=== PATIENT | male | born 2000 | race Caucasian/White ===

== ENCOUNTER 2020-12-12 20:09 | Emergency (ER) | payer MEDICAID, SELFPAY ==
[2020-12-12 20:25] VITALS: PULSE 100; RESP 17; TEMP 37.5; O2SAT 96; BMI 37.5
[2020-12-12 23:04] VITALS: RESP 16; TEMP 37.3
[2020-12-12 23:17] LABS: Influenza A PCR NEGATIVE (Negative); Influenza B PCR NEGATIVE (Negative); Resp Syncy Virus RNA Qual PCR NEGATIVE (Negative)
[2020-12-12] MEDS: Acetaminophen 325 MG TABLET 650 MG PO (23:20)
--- NOTE | 2020-12-12 23:25 | ED.FEVER ---
HPI - Fever General Chief Complaint: Fever Stated Complaint: COVID SYMPTOMS Time Seen by Provider: 12/12/20 23:24 Source: patient Mode of arrival: ambulatory Limitations: no limitations History of Present Illness HPI Narrative: Patient complaining of body aches fever congestion started yesterday no known COVID contacts occasional dry cough no shortness of breath saturating 96% at room air Related Data Previous Rx's Medication Instructions Recorded ibuprofen 600 mg PO Q6H PRN #20 tab 12/14/20 [id number]-[id number] 1 appl TOPICAL QID 5 Days #15 g 12/14/20 [Cortisporin] amoxicillin-pot clavulanate 1 tab PO BID #14 tab 12/18/20 [Augmentin] ibuprofen 800 mg PO Q8H PRN #20 tab 12/18/20 Allergies Allergy/AdvReac Type Severity Reaction Status Date / Time No Known Allergies Allergy Verified 12/18/20 20:40 [No Known Allergies*] Review of Systems Review of Systems: Yes all other systems are reviewed and are negative PMFSH Past Medical History Medical History Asthma Social History Social History Advance Directives: No Advance Directives Information Provided: No Physical Exam Vital Signs: Vital Signs: Last Vital Signs Temp 99.2 F 12/12/20 23:04 Pulse 100 12/12/20 20:25 Resp 16 12/12/20 23:04 Pulse Ox 96 12/12/20 20:25 Body Mass Index 37.5 Const: General: comfortable and no acute distress HENMT: Head: Yes normal to inspection General nose exam: Normal external nose present Eyes: General: appearance normal, both eyes and all related structures Neck: Neck: Yes normal visual inspection Resp: Effort & Inspection: normal respiratory effort Auscultation: clear to auscultation bilaterally Cardio: Palpation: normal PMI Rate: regular rate Rhythm: regular rhythm GI: Inspection: Yes normal to inspection Palpation (GI): Soft to palpation and nontender Auscultation: normal bowel sounds MDM - Fever MDM Narrative Medical decision making narrative: Patient's symptoms with COVID 19 infection saturating 96% will discharge patient home for supportive treatment Lab Data Attestation: I reviewed the patient's lab results. Labs: Lab Results 12/12/20 Range/Units 22:17 Coronavirus (PCR) POSITIVE A (Negative) Influenza Type A (PCR) NEGATIVE (Negative) Influenza Type B (PCR) NEGATIVE (Negative) RSV RNA Qual (PCR) NEGATIVE (Negative) Discharge Plan Discharge Clinical Impression: COVID-19 Patient Disposition: Home, Self-Care Instructions: COVID-19 (Coronavirus Disease 2019) (ED) Additional Instructions: Keep social distancing Report to the ER/PCP if increased shortness of breath Prescriptions: No Action amoxicillin-pot clavulanate [Augmentin] 875-125 mg tablet 1 tab PO BID Qty: 14 RF: 0 ibuprofen 800 mg tablet 800 mg PO Q8H PRN (Reason: pain) Qty: 20 RF: 0 Cortisporin 1 % ointment 1 appl topical QID 5 Days Qty: 15 RF: 0 ibuprofen 600 mg tablet 600 mg PO Q6H PRN (Reason: pain) Qty: 20 RF: 0 Stand Alone Forms: Work/School Release Interventions: ED Discharge Assessment Last Done: 12/13/20 00:04 Discharge Date/Time: 12/13/20 00:04
[2020-12-12 23:26] LABS: SARS COV2 PCR INHOUSE POSITIVE (Negative)
== END 2020-12-13 00:04 | disposition home or self-care (01) ==
PROVIDERS: Emergency Provider Internal Medicine; PCP Internal Medicine Geriatric Medicine
DX: R05 Cough (principal); Z20.822 Contact with and (suspected) exposure to COVID-19
CPT/HCPCS: 0241U; 36415; 99284

== ENCOUNTER 2020-12-14 11:16 | Emergency (ER) | payer MEDICAID, SELFPAY ==
--- NOTE | ~2020-12-14 | XR_ITS ---
EXAMINATION: XR CHEST CLINICAL INFORMATION: Cough, COVID+ COMPARISON: Chest radiographs 07/17/2019 TECHNIQUE: Portable upright AP view of the chest was obtained. FINDINGS: There is subtle groundglass opacities suggested right base. There is no lobar or segmental airspace consolidation or effusion. The heart is normal in size. The vascularity is normal. The hilar and mediastinal contours and bony structures are similar to prior study. XR/XR chest 1V IMPRESSION: 1. Subtle groundglass opacities suggested right base. 2. Lungs otherwise clear. No lobar or segmental airspace consolidation or effusion.
[2020-12-14 11:24] VITALS: BP 135/85; PULSE 90; RESP 18; TEMP 36.1; O2SAT 97; BMI 34.9
--- NOTE | 2020-12-18 14:39 | ED.GENADULT ---
HPI - General Adult General Chief complaint: Upper Respiratory Symptoms <RISA Cool Last Filed: 12/18/20 14:43> Stated complaint: covid + <RISA Cool Last Filed: 12/18/20 14:43> Time Seen by Provider: 12/14/20 12:12 <RISA Cool Last Filed: 12/18/20 14:43> History of Present Illness HPI narrative: Patient who tested positive for COVID a couple of days ago complains of cough and mild shortness of breath as well as left ear pain, no fever no chills no headache no dizziness <RISA Cool Last Filed: 12/18/20 14:43> Related Data Home medications: Previous Rx's Medication Instructions Recorded ibuprofen 600 mg PO Q6H PRN #20 tab 12/14/20 [id number]-[id number]-[id number]-HC 1 appl TOPICAL QID 5 Days #15 g 12/14/20 [Cortisporin] amoxicillin-pot clavulanate 1 tab PO BID #14 tab 12/18/20 [Augmentin] ibuprofen 800 mg PO Q8H PRN #20 tab 12/18/20 <RISA Cool Last Filed: 12/18/20 14:43> Allergies/adverse reactions: Allergies Allergy/AdvReac Type Severity Reaction Status Date / Time No Known Allergies Allergy Verified 12/18/20 20:40 [No Known Allergies*] <RISA Cool Last Filed: 12/18/20 14:43> Review of Systems Review of Systems: Positive for cough shortness of breath and left ear pain Negatives are no fever no chills no confusion no headache no dizziness no weakness no neck pain no stiff neck no chest pain no palpitations no abdominal pain no nausea or vomiting no rash no numbness or weakness <RISA Cool Last Filed: 12/18/20 14:43> Yes all other systems are reviewed and are negative <RISA Cool Last Filed: 12/18/20 14:43> PMFSH Past Medical History Source: nursing notes reviewed <RISA Cool Last Filed: 12/18/20 14:43> Medical History: Medical History Asthma <RISA Cool Last Filed: 12/18/20 14:43> Social History Social History: Social History Advance Directives: No Advance Directives Information Provided: No <RISA Cool - Last Filed: 12/18/20 14:43> Physical Exam Vital Signs: Vital Signs: Last Vital Signs Temp 97 F 12/14/20 11:24 Pulse 90 12/14/20 11:24 Resp 18 12/14/20 11:24 BP 135/85 12/14/20 11:24 Pulse Ox 97 12/14/20 11:24 Body Mass Index 34.9 <RISA Cool - Last Filed: 12/18/20 14:43> Vital Signs: Last Vital Signs Temp 97 F 12/14/20 11:24 Pulse 90 12/14/20 11:24 Resp 18 12/14/20 11:24 BP 135/85 12/14/20 11:24 Pulse Ox 97 12/14/20 11:24 Body Mass Index 34.9 <Tonio Godinez MD - Last Filed: 01/16/21 06:27> General appearance is no acute distress, speaking full sentences, cooperative, comfortable The eyes are clear without discharge The ears, the right ear has a normal canal with intact normally colored tympanic membrane The left ear had a narrowed erythematous canal with a red tympanic membrane visible, there was pain with touching and moving the ear consistent with otitis externa Pharynx is clear, mucous membranes moist The neck is supple Chest is clear to auscultation with full symmetric equal breath sounds no wheezing Abdomen soft nontender Extremities no edema, no calf tenderness or swelling Neuro no motor or sensory deficit, gait and balance are normal, speech both expression and comprehension are normal <RISA Cool - Last Filed: 12/18/20 14:43> Course Course Course Narrative: Chest x-ray was negative Well-appearing patient is instructed in COVID breathing exercises and informed to come back if any worse He is treated with the antibiotic drops and oral medication for left ear otitis externa with a red tympanic membrane <RISA Cool - Last Filed: 12/18/20 14:43> I have reviewed the chart <Tonio Godinez MD - Last Filed: 01/16/21 06:27> Discharge Plan Discharge Clinical Impression: COVID-19, Otitis externa <RISA Cool - Last Filed: 12/18/20 14:43> Patient Disposition: Home, Self-Care <RISA Cool - Last Filed: 12/18/20 14:43> Additional Instructions: Exam of left ear showed an inflamed narrowed canal so we are treating with ear drops, Cortisporin drops 4 times a day Chest x-ray showed findings of viral illness common in COVID Rapid strep test of throat was normal Physical exam lungs were clear and the throat looks normal Return to ER any time for difficulty breathing, any worse condition any concerns <RISA Cool - Last Filed: 12/18/20 14:43> Prescriptions: New Cortisporin 1 % ointment 1 appl topical QID 5 Days Qty: 15 RF: 0 ibuprofen 600 mg tablet 600 mg PO Q6H PRN (Reason: pain) Qty: 20 RF: 0 No Action amoxicillin-pot clavulanate [Augmentin] 875-125 mg tablet 1 tab PO BID Qty: 14 RF: 0 ibuprofen 800 mg tablet 800 mg PO Q8H PRN (Reason: pain) Qty: 20 RF: 0 <RISA Cool - Last Filed: 12/18/20 14:43> Interventions: ED Discharge Assessment Last Done: 12/14/20 14:14 <RISA Cool - Last Filed: 12/18/20 14:43> Discharge Date/Time: 12/14/20 14:14 <RISA Cool - Last Filed: 12/18/20 14:43>
== END 2020-12-14 14:14 | disposition home or self-care (01) ==
PROVIDERS: Emergency Provider Emergency Medicine; PCP Internal Medicine Geriatric Medicine
DX: U07.1 COVID-19 (principal); H66.92 Otitis media, unspecified, left ear
CPT/HCPCS: 71045; 87071; 87880; 99283

== ENCOUNTER 2020-12-18 19:59 | Emergency (ER) | payer MEDICAID, SELFPAY ==
[2020-12-18 20:37] VITALS: BP 118/72; PULSE 95; RESP 20; TEMP 37.2; O2SAT 98; BMI 27.3
--- NOTE | 2020-12-18 20:40 | ED_ITS ---
HPI - General Adult General Chief complaint: Dental/Oral Stated complaint: TOOTH PAIN, COVID+ Time Seen by Provider: 12/18/20 20:19 Source: patient and EMS Mode of arrival: EMS Limitations: no limitations History of Present Illness HPI narrative: Patient seen here yesterday and diagnosed with COVID-19. Returns today for left lower dental pain. Began yesterday but forgot to mention it when he was here during his visit. No fevers or chills Related Data Previous Rx's Medication Instructions Recorded ibuprofen 600 mg PO Q6H PRN #20 tab 12/14/20 [id number]-[id number]-HC 1 appl TOPICAL QID 5 Days #15 g 12/14/20 [Cortisporin] amoxicillin-pot clavulanate 1 tab PO BID #14 tab 12/18/20 [Augmentin] ibuprofen 800 mg PO Q8H PRN #20 tab 12/18/20 Allergies Allergy/AdvReac Type Severity Reaction Status Date / Time No Known Allergies Allergy Verified 12/18/20 20:40 [No Known Allergies*] Review of Systems Review of Systems: Yes all other systems are reviewed and are negative Constitutional: Constitutional: Reports no additional constitutional complaints, Denies body ache(s), Denies chills, Denies fever(s), Denies h eadache(s) and Denies weakness Eyes: Eyes: Reports no additional eye complaints and Denies change in vision ENT: Reports system reviewed and no additional complaints, except as documented, Reports dental pain, Denies dizziness, Denies headache(s), Denies nasal congestion, Denies nasal discharge and Denies neck pain Cardiovascular: Cardiovascular: Reports no additional cardiovascular complaints, Denies chest pain, Denies leg edema and Denies dyspnea Respiratory: Respiratory: Reports no additional respiratory complaints, Denies cough and Denies dyspnea Gastrointestinal: Gastrointestinal: Reports no additional gastrointestinal complaints, Denies abdominal pain, Denies diarrhea, Denies nausea and Denies vomiting Genitourinary: Genitourinary: Denies urinary incontinence Musculoskeletal: Musculoskeletal: Reports no additional musculoskeletal complaints, Denies back pain, Denies arthralgias, Denies joint swelling, Denies neck pain, Denies numbness and Denies tingling Integumentary/Breasts: Skin/Breast: Reports system reviewed and no additional complaints, except as docu and Denies rash Neurologic: Reports system reviewed and no additional complaints, except as documented, Denies Abnormal speech present, Denies dizziness, Denies headache(s), Denies numbness, Denies tingling and Denies weakness PMFSH Past Medical History Attestation statement: The following information was validated with the patient. Source: old records reviewed and nursing notes reviewed Medical History Asthma Social History Social History Advance Directives: No Advance Directives Information Provided: No Physical Exam Vital Signs: Vital Signs: Last Vital Signs Temp 98.9 F 12/18/20 20:37 Pulse 95 12/18/20 20:37 Resp 20 12/18/20 20:37 BP 118/72 12/18/20 20:37 Pulse Ox 98 12/18/20 20:37 Body Mass Index 27.3 Const: General: cooperative, healthy appearing, comfortable and no acute distress Orientation/consciousness: patient oriented x3 Limitations: no limitations HENMT: Head: Yes normal to inspection Ears: hearing grossly normal bilaterally General nose exam: Normal external nose present Face and sinus: Yes normal facial exam Mouth: Normal oral and palatal mucosa present Teeth image: 1. Tenderness and mild erythema surrounding the tooth. No obvious abscess, fluctuance or induration. No trismus Throat: Yes posterior oropharynx normal Eyes: General: appearance normal, both eyes and all related structures Pupils: Equal, round and reactive pupils present Neck: Neck: Yes normal visual inspection Chest: Chest palpation & inspection: normal inspection of the chest Resp: Effort & Inspection: normal respiratory effort Auscultation: clear to auscultation bilaterally Cardio: Rate: regular rate Rhythm: regular rhythm Peripheral pulses: Peripheral pulses 2+ throughout GI: Inspection: Yes normal to inspection Palpation (GI): Soft to palpation and nontender Auscultation: normal bowel sounds Back/Spine/Pelvis: Thoracic/Lumbar Spine: thoracic and lumbar spine normal to inspection Skin: General skin exam: no rashes or lesions noted Neuro: General: patient oriented x3, no focal motor deficits and normal sens ation to monofilament Cranial nerves: Yes Equal, round and reactive pupils present Cognition (Neuro): normal cognition Speech: No Abnormal speech present Gait exam (Neuro): Normal gait present Motor exam (neuro): 5/5 motor strength present throughout Extrem: General: Yes normal to inspection Course Course Course Narrative: 20-year-old male COVID positive here left lower dental pain x2 days. On exam he does have some mild erythema and swelling around a left lower molar. No obvious abscess. Given Toradol 60 mg IM and 1 dose of antibiotic here. Will discharge patient home with analgesia and antibiotics with dental follow-up once he has recovered from COVID-19. Reviewed worrisome signs and symptoms and when to return to the emergency depart ment. Comfortable discharge home. Discharge Plan Discharge Clinical Impression: Tooth ache Patient Disposition: Home, Self-Care Instructions: Toothache (ED) Additional Instructions: Topical oragel and apply directly to tooth Salt water gargles Soft, lukewarm foods Follow-up with dental Prescriptions: New amoxicillin-pot clavulanate [Augmentin] 875-125 mg tablet 1 tab PO BID Qty: 14 RF: 0 ibuprofen 800 mg tablet 800 mg PO Q8H PRN (Reason: pain) Qty: 20 RF: 0 No Action Cortisporin 1 % ointment 1 appl topical QID 5 Days Qty: 15 RF: 0 ibuprofen 600 mg tablet 600 mg PO Q6H PRN (Reason: pain) Qty: 20 RF: 0 Referrals: Physician,Unknown [Primary Care Provider] - 2 days
[2020-12-18] MEDS: Ketorolac Tromethamine 60 MG/2 ML VIAL IM (21:06)
[2020-12-18] MEDS: Amoxicillin/Potassium Clav 875 MG TABLET PO (21:06)
--- NOTE | 2020-12-18 21:29 | PC.NURSE ---
PT'S SISTER CAME TO BRING HIM HOME. INSTRUCTIONS REVIEWED WITH SISTER, MEDICATIONS AND ORAL CARE. NEED FOR FOLLOW UP WITH DENTIST.
== END 2020-12-18 21:31 | disposition home or self-care (01) ==
PROVIDERS: Emergency Provider Emergency Medicine
DX: U07.1 COVID-19 (principal); K08.89 Other specified disorders of teeth and supporting structures; Z79.899 Other long term (current) drug therapy
CPT/HCPCS: 96372; 99283; J1885

== ENCOUNTER 2023-05-27 11:36 | Outpatient (REF) | payer MEDICAID, SELFPAY ==
[2023-05-27 13:11] LABS: MANUAL DIFF FLAG NO
[2023-05-27 13:29] LABS: Basophils Absolute Auto 0.1 X10*3/uL (0.0-0.2); Basophils Percent Auto 0.7 % (0-2); Eosinophils Absolute Auto 0.2 X10*3/uL (0.0-0.4); Eosinophils Percent Auto 2.3 % (0-4); Hematocrit 47.7 % (42.0-52.0); Hemoglobin 15.1 g/dl (14.0-18.0); Imm Gran Abs Auto 0.02 X10*3/uL (0.00-0.03); Imm Gran Pct Auto 0.2 % (0.0-0.4); Lymphocytes Absolute Auto 3.2 X10*3/uL (1.2-4.9); Lymphocytes Percent Auto 37.6 % (20-40); Mean Corpuscular HGB Conc 31.7 g/dl (31.0-36.0); Mean Corpuscular Hemoglobin 27.2 pg (27.0-33.0); Mean Corpuscular Volume 85.8 fL (80.0-98.0); Mean Platelet Volume 10.2 fL (9.4-12.4); Monocytes Absolute Auto 0.6 X10*3/uL (0.1-1.2); Monocytes Percent Auto 7.5 % (2-11); Neutrophils Absolute Auto 4.4 x10*3/uL (2.0-8.3); Neutrophils Percent Auto 51.7 % (45-73); Platelet Count 362 X10*3/uL (160-400); Red Blood Count 5.56 X10*6/uL (4.60-5.80); Red Cell Distribution Width 13.1 % (11.0-16.0); White Blood Count 8.6 X10*3/uL (4.8-10.8)
[2023-05-27 14:11] LABS: Alanine Aminotransferase 37 U/L (0-40); Albumin Level 4.1 g/dL (3.5-5.0); Alkaline Phosphatase 83 U/L (39-117); Anion Gap 15 (12-20); Aspartate Amino Transferase 25 U/L (5-37); Bilirubin Total 0.3 mg/dL (0.0-1.0); Blood Urea Nitrogen 10 mg/dL (9-16); Calcium 9.5 mg/dL (8.4-10.2); Carbon Dioxide 22 mmol/L (22-29); Chloride 111 mmol/L (96-108); Cholesterol 160 mg/dL (<200); Estimated Glomerular Filt Rate > 60; Glucose Random 79 mg/dL (60-115); HDL Cholesterol 28 mg/dL (>40); LDL Cholesterol Calculated 96 mg/dL (<100); Potassium 3.6 mmol/L (3.3-5.1); Sodium 144 mmol/L (135-145); Total Protein 7.6 g/dL (6.5-8.0); Triglycerides 181 mg/dL (<150)
[2023-05-27 14:28] LABS: Syphilis Screen Nonreactive (Nonreactive)
[2023-05-28 07:31] LABS: HBS Num1 2.74 mIU/mL (0-7.99); HBc Num1 0.13 S/CO (0.00-0.79); HBsAGNum1 0.34 S/CO (0.00-0.99); HIV AB/AG Nonreactive (Nonreactive); HIV Num 1 0.12 S/CO (0.00-0.99); Hepatitis B Core Antibody Nonreactive (Nonreactive); Hepatitis B Surface Antigen Negative (Negative); ~Hepatitis B Surface Antibody NONREACTIVE (Nonreactive); ~Hepatitis C Antibody Nonreactive (Nonreactive)
== END 2023-05-27 11:37 | disposition home or self-care (01) ==
LOC: HO.HHCL 11:36
PROVIDERS: Visit Provider Internal Medicine Geriatric Medicine
DX: Z00.00 Encounter for general adult medical examination without abnormal findings (principal); Z11.4 Encounter for screening for human immunodeficiency virus [HIV]; Z13.1 Encounter for screening for diabetes mellitus; Z13.220 Encounter for screening for lipoid disorders
CPT/HCPCS: 36415; 80053; 80061; 85025; 86704; 86706; 86780; 86803; 87340; 87389

== ENCOUNTER 2025-05-11 08:13 | Outpatient (REF) | payer MEDICAID, SELFPAY ==
[2025-05-11 11:59] LABS: MANUAL DIFF FLAG NO
[2025-05-11 12:12] LABS: Hematocrit 46.1 % (42.0-52.0); Hemoglobin 15.1 g/dl (14.0-18.0); Imm Gran Abs Auto 0.02 X10*3/uL (0.00-0.03); Imm Gran Pct Auto 0.3 % (0.0-0.4); Lymphocytes Absolute Auto 2.7 X10*3/uL (1.2-4.9); Mean Corpuscular HGB Conc 32.8 g/dl (31.0-36.0); Mean Corpuscular Hemoglobin 27.8 pg (27.0-33.0); Mean Corpuscular Volume 84.9 fL (80.0-98.0); NRBC Abs Auto 0.000 X10*3/uL (0.0-0.012); NRBC Pct Auto 0.0 /100WBC (0.0-0.2); Platelet Count 346 X10*3/uL (160-400); Red Blood Count 5.43 X10*6/uL (4.60-5.80); White Blood Count 7.6 X10*3/uL (4.8-10.8)
[2025-05-11 12:19] LABS: Hemoglobin A1C 137.9372 umol/L; Total Hemoglobin (HGBA1C) 3909.8575 umol/L
[2025-05-11 12:49] LABS: HIV Num 1 0.05 S/CO (0.00-0.99); ~HepC Num1 0.17 S/CO (0.00-0.79); ~Hepatitis C Antibody Nonreactive (Nonreactive)
[2025-05-11 12:52] LABS: Alanine Aminotransferase 44 U/L (0-40); Albumin Level 4.1 g/dL (3.5-5.0); Alkaline Phosphatase 79 U/L (39-117); Anion Gap 12 (12-20); Aspartate Amino Transferase 33 U/L (5-37); Blood Urea Nitrogen 15 mg/dL (9-16); Calcium 9.5 mg/dL (8.4-10.2); Carbon Dioxide 24 mmol/L (22-29); Chloride 111 mmol/L (96-108); Cholesterol 162 mg/dL (<200); Estimated Glomerular Filt Rate > 60; HDL Cholesterol 28 mg/dL (>40); Potassium 3.8 mmol/L (3.3-5.1); Sodium 143 mmol/L (135-145); Total Protein 7.4 g/dL (6.5-8.0); Triglycerides 183 mg/dL (<150)
== END 2025-05-11 08:14 | disposition home or self-care (01) ==
LOC: HO.HHCL 08:13
PROVIDERS: PCP Internal Medicine Geriatric Medicine; Visit Provider Internal Medicine
DX: Z00.00 Encounter for general adult medical examination without abnormal findings (principal); Z11.4 Encounter for screening for human immunodeficiency virus [HIV]
CPT/HCPCS: 36415; 80053; 80061; 82306; 83036; 84443; 85025; 86592; 86803; 87389